=== PATIENT | male | born 1955 | race Caucasian/White ===

== ENCOUNTER 2023-03-13 12:01 | Day surgery (SDC) | payer OTHER, MEDICARE, SELFPAY ==
[2023-03-13] VITALS (7 sets, daily range): BP systolic 70–129; BP diastolic 30–83; PULSE 69–101; RESP 10–16; TEMP 36.2–36.6; O2SAT 96–98; BMI 37.5
--- NOTE | 2023-03-13 | PATH_ITS ---
[facility] Accession Number: [id number] No. of containers..04 Tissue . 01 Material submitted: . PART A: colon - CECAL POLYP PART B: colon - ASCENDING FOLD PART C: colon - RANDOM COLON BIOPSIES PART D: colon - SIGMOID POLYP . 01 Diagnosis: A. Cecal Polyp: Tubular adenoma. . B. Ascending Colon Fold, Biopsy: Colonic mucosa with no diagnostic abnormality, consistent with polypoid redundancy. Negative for dysplasia or malignancy. . C. Random Colon, Biopsies: Colonic mucosa with no diagnostic abnormality. Negative for active, chronic, and microscopic colitis. Negative for dysplasia and malignancy. . D. Sigmoid Colon Polyp: Hyperplastic polyp. V 03/17/2023 1553 Local . 01 Electronically signed: . Cameron Campos MD, PhD, Pathologist NPI- [id number] . 01 Gross description: . The specimen is received in formalin in four parts, all labeled with the patient's name and . . A. Designated cecal polyp consists of rizvi soft tissue fragments ranging from 0.1 to 0.2 cm in greatest dimension. Submitted entirely in cassette A1. B. Designated ascending fold consists of a single rizvi soft tissue fragment measuring 0.3 cm in greatest dimension. Submitted entirely in cassette B1. C. Designated random colon biopsies consists of two rizvi soft tissue fragments measuring 0.2 cm each in greatest dimension. Submitted entirely in cassette C1. D. Designated sigmoid polyp consists of a single rizvi soft tissue fragment measuring 0.5 cm in greatest dimension. Submitted entirely in cassette D1. ([id number]) /MRV 03/15/2023 1836 Local . 01 Pathologist provided ICD-10: D12.0, R19.4 . 01 CPT . 288122, 956241, 503404, 337910 Specimen Comment: A courtesy copy of this report has been sent to [phone] Performed at: 01 [facility] [address] [place] [address], [place], [place] [id number] MD Efrem Ye MD Phone: [phone]
[2023-03-13] MEDS: LACTATED RINGERS 1,000 ML 42 ML IV (12:39)
--- NOTE | 2023-03-13 12:46 | P.HP_ITS ---
History of Present Illness History of Present Illness Date Patient Seen: 03/13/23 Time Patient Seen: 12:46 Chief complaint: SDC Narrative: I reviewed the recent office note by Arnoldo Bernardo. Patient is still having diarrhea once per week on average. He wonders whether it might be related to his metformin. [facility] Social History household members: spouse Smoking Status: Former smoker alcohol intake: former Meds Home Medications and Allergies Home Medications Medication Instructions Recorded Confirmed Type amlodipine 10 mg tablet 10 mg PO DAILY 03/13/23 03/13/23 History diclofenac sodium 75 mg 75 mg PO BID 03/13/23 03/13/23 History tablet,delayed release levothyroxine 100 mcg tablet 100 mcg PO DAILY 03/13/23 03/13/23 History lisinopril 20 mg tablet 40 mg PO DAILY 03/13/23 03/13/23 History lovastatin 40 mg tablet 80 mg PO DAILY 03/13/23 03/13/23 History metformin 500 mg tablet 500 mg PO BID 03/13/23 03/13/23 History omeprazole 20 mg tablet,delayed 20 mg PO DAILY 03/13/23 03/13/23 History release Allergies Allergy/AdvReac Type Severity Reaction Status Date / Time aspirin Allergy Severe as a Verified 03/13/23 12:20 child-throat swelling Exam Vital Signs (past 8 hours): - 03/13/23 12:29 Temperature 97.9 F Pulse Rate 101 H Respiratory Rate 12 Blood Pressure 129/83 Pulse Oximetry 96 Oxygen Delivery Method Room Air Oxygen Delivery Method Room Air Const General: cooperative HENMT Head: normal to inspection Eyes General: appearance normal, both eyes and all related structures Neck Neck: normal visual inspection Chest Chest: normal inspection of the chest Resp Effort & Inspection: normal respiratory effort Cardio Rate: regular rate GI Inspection: normal to inspection Skin General: no rashes or lesions noted Neuro General: patient alert and patient awake Extrem General: normal to inspection and no pedal edema Psych Appearance: grossly normal Assessment & Plan Assessment & Plan narrative: This is a 68-year-old male with a personal history of adenomatous colon polyps and a recent history of abnormal imaging suggesting the presence of colitis with transient diarrhea. He now has intermittent loose stools. Colonoscopy is pursued today.
--- NOTE | 2023-03-13 13:58 | PM.OP.COLON ---
Operative Date/Time/Diagnoses Date of procedure: 03/13/23 Time of procedure: 13:58 Pre-op diagnosis: Intermittent diarrhea, abnormal imaging, personal history of colon polyps Post-op diagnosis: same Procedure & Clinicians Study performed: Colonoscopy with hot snare polypectomy, cold forceps polypectomy, and biopsies. Same procedure as scheduled: Yes Indications: Diarrhea abnormal imaging history of colon polyps. Surgeon: Sharad Bangura Procedure Notes SCOAP/Timeout: Done Procedure in detail: After the risks and benefits were explained, written and verbal informed consent was obtained. The patient was brought into the procedure room and placed into the left lateral decubitus position. Please see anesthesia notes for sedation details. Digital rectal examination was accomplished. The scope was introduced into the patient and advanced under direct visualization to the cecum as identified by the appendiceal orifice and ileocecal valve. The scope was slowly withdrawn to carefully examine the mucosa for any defects or lesions. Comprehensive imaging was accomplished throughout the rectum including the dentate line. The colon was decompressed, the scope was then removed from the patient who tolerated the procedure well. Adult colonoscope Bowel prep adequate Scope withdrawal time: 15 minutes Sedation minutes: 20 Complications: none Impression: There was diverticulosis in the left colon. This extended all the way to cecum. In the rectosigmoid there were several scattered small benign-appearing probably hyperplastic polyps. A couple of these were removed with hot snare for a territory representative sampling. The 2 that were removed were 5 mm and 7 mm respectively. In the cecum there was a diminutive polyp addressed with cold forceps. In the ascending colon there were some scattered unusual mucosal features that gave the appearance of pale mucosa. These did not appear to represent polyps. It almost looked as though they were areas of hypoperfused mucosa. One of them was biopsied for a territory representative sampling. Random colon biopsies were thereafter taken for exclusion of microscopic colitis. I was able to get looks up into the terminal ileum and this appeared visually normal. There was no evidence of any significant macroscopic colitis throughout. Endoscopic diagnosis 1. Diverticulosis 2. Patchy pale right colopathy 3. Colon polyps Post-procedure Plan for aftercare: 1. Await histopathology 2. The timing of surveillance colonoscopy will be contingent on biopsy results. Disposition: PACU
== END 2023-03-13 14:50 | disposition home or self-care (01) ==
PROVIDERS: PCP Family Medicine; Referring Provider Internal Medicine Gastroenterology; Visit Provider Internal Medicine Gastroenterology
PROC: 0DJD8ZZ Inspection of Lower Intestinal Tract, Via Natural or Artificial Opening Endoscopic (ICD-10-PCS; CPT 45378; principal; 2023-03-13 13:00)
DX: R19.7 Diarrhea, unspecified (principal); R93.3 Abnormal findings on diagnostic imaging of other parts of digestive tract; Z86.010 Personal history of colon polyps; K57.30 Diverticulosis of large intestine without perforation or abscess without bleeding; D12.0 Benign neoplasm of cecum
CPT/HCPCS: 45385; 45380; J2704